=== PATIENT | male | born 1960 | race Caucasian/White ===

== ENCOUNTER 2018-12-26 21:42 | Inpatient (IN) | payer OTHER ==
[2018-12-26] MEDS: SOD CHLORIDE 0.9% 1,000 ML IV (22:45)
[2018-12-26] MEDS: ONDANSETRON 4 MG INJ IV (22:46)
[2018-12-26] MEDS: morphine 4 MG/ML VIAL IV (22:46)
[2018-12-26 22:47] LABS: ADD MAN DIFF? NO
[2018-12-26 22:53] LABS: BASOPHIL # 0.1 10^3/ul (0.0-0.1); BASOPHILS % 0.2 % (0.0-2.0); EOSINOPHILS % 0.2 % (0.0-7.0); HEMATOCRIT 45.2 % (42.0-52.0); HEMOGLOBIN 15.6 g/dl (14.0-18.0); LYMPHOCYTES # 1.6 10^3/ul (0.8-2.9); LYMPHOCYTES % 7.6 % (15.0-51.0); MEAN CORPUSCULAR HGB CONC 34.5 g/dl (32.0-37.0); MEAN CORPUSCULAR VOLUME 89.7 fl (82.0-101.0); MEAN PLATELET VOLUME 10.2 fl (7.4-10.4); MONOCYTE # 1.1 10^3/ul (0.3-0.9); MONOCYTES % 5.4 % (0.0-11.0); PLATELET COUNT 294 10^3/UL (140-415); RED BLOOD COUNT 5.04 10^6/ul (4.70-6.10); RED CELL DISTRIBUTION WIDTH 12.7 % (11.5-14.5)
[2018-12-26 22:53] LABS: WHITE BLOOD COUNT 20.9 10^3/ul (4.8-10.8)
[2018-12-26 23:09] LABS: ALANINE AMINOTRANSFERASE 24 IU/L (13-69); ALKALINE PHOSPHATASE 123 IU/L (42-121); AMYLASE 82 U/L (11-123); ANION GAP 11 (5-13); ASPARTATE AMINO TRANSFERASE 32 IU/L (15-46); BLOOD UREA NITROGEN 15 mg/dl (7-20); CALCIUM 10.2 mg/dl (8.4-10.2); CARBON DIOXIDE 28 mmol/L (21-31); CHLORIDE 102 mmol/L (97-110); CREATININE 0.76 mg/dl (0.61-1.24); Estimated GFR > 60 mL/min (>60); GLUCOSE 324 mg/dl (70-220); LIPASE 109 U/L (23-300); POTASSIUM 3.8 mmol/L (3.5-5.1); SODIUM 141 mmol/L (135-144)
[2018-12-26 23:10] LABS: ALBUMIN 4.4 g/dl (3.3-4.9); ALBUMIN/GLOBULIN RATIO 1.07; TOTAL PROTEIN 8.5 g/dl (6.1-8.1)
[2018-12-26 23:13] LABS: INR 0.97; PARTIAL THROMBOPLASTIN TIME 27.4 Sec (23.0-35.0)
[2018-12-26] MEDS: HYDROmorphONE 0.5 MG/0.5 ML SYG IV (23:55)
[2018-12-27] MEDS ORDERED: ONDANSETRON 4 MG INJ IV ×2 (02:30→04:30)
[2018-12-27] MEDS ORDERED: ACETAMINOPHEN 325 MG TAB PO ×2 (02:30→04:30)
[2018-12-27] MEDS ORDERED: BISACODYL (EC) 5 MG TAB PO (04:30)
[2018-12-27] MEDS ORDERED: morphine 2 MG INJ IV (04:30)
[2018-12-27] MEDS ORDERED: DOCUSATE SODIUM 100 MG CAP PO (04:30)
[2018-12-27] MEDS ORDERED: GLUCOSE GEL 15 GRAM TUBE BUCCAL (04:30)
[2018-12-27] MEDS ORDERED: GLUCOSE GEL 15 GRAM TUBE PO ×2 (04:30)
[2018-12-27] MEDS ORDERED: NACL 0.9% 3 ML SYG IV (04:30)
[2018-12-27] MEDS ORDERED: GLUCAGON 1 MG INJ IM (04:30)
[2018-12-27] MEDS ORDERED: DEXTROSE 50% 50 ML SYRINGE IV ×2 (04:30)
[2018-12-27] MEDS: SOD CHLORIDE 0.9% 1,000 ML IV ×2 (05:51→21:42)
[2018-12-27] MEDS: INSULIN ASPART [NOVOLOG] 3 ML PEN SC ×4 (05:52→20:46)
[2018-12-27 13:45] LABS: ADD MAN DIFF? NO
[2018-12-27 13:47] LABS: BASOPHILS % 0.3 % (0.0-2.0); EOSINOPHILS # 0.1 10^3/ul (0.0-0.5); EOSINOPHILS % 1.3 % (0.0-7.0); HEMATOCRIT 38.5 % (42.0-52.0); HEMOGLOBIN 13.5 g/dl (14.0-18.0); LYMPHOCYTES # 1.6 10^3/ul (0.8-2.9); LYMPHOCYTES % 17.5 % (15.0-51.0); MEAN CORPUSCULAR HEMOGLOBIN 31.4 pg (29.0-33.0); MEAN CORPUSCULAR HGB CONC 35.1 g/dl (32.0-37.0); MEAN CORPUSCULAR VOLUME 89.5 fl (82.0-101.0); MEAN PLATELET VOLUME 10.2 fl (7.4-10.4); MONOCYTE # 0.9 10^3/ul (0.3-0.9); MONOCYTES % 9.5 % (0.0-11.0); NEUTROPHIL # 6.6 10^3/ul (1.6-7.5); PLATELET COUNT 262 10^3/UL (140-415); RED CELL DISTRIBUTION WIDTH 12.8 % (11.5-14.5)
[2018-12-27 13:47] LABS: WHITE BLOOD COUNT 9.3 10^3/ul (4.8-10.8)
[2018-12-27] MEDS ORDERED: IOHEXOL 300MG/ML 150 ML BTL (15:13)
[2018-12-27] MEDS ORDERED: INSULIN ASPART [NOVOLOG] 3 ML PEN SC (17:35)
[2018-12-27] MEDS: INSULIN GLARGINE [LANTus] (100 UNITS/ML) SYG SC (20:46)
[2018-12-28] MEDS: INSULIN ASPART [NOVOLOG] 3 ML PEN SC ×6 (01:00→20:18)
[2018-12-28] MEDS ORDERED: ACCU-CHEK XX (02:00)
[2018-12-28 06:51] LABS: HEMOGLOBIN A1C 10.3 % (0-5.9)
[2018-12-28] MEDS: SOD CHLORIDE 0.9% 1,000 ML IV ×2 (06:58→17:24)
[2018-12-28 07:13] LABS: ANION GAP 5 (5-13); BLOOD UREA NITROGEN 13 mg/dl (7-20); CALCIUM 8.6 mg/dl (8.4-10.2); CARBON DIOXIDE 28 mmol/L (21-31); CHLORIDE 111 mmol/L (97-110); CHOL/HDL RATIO 4.5 RATIO; CHOLESTEROL 142 mg/dl (100-200); CREATININE 0.76 mg/dl (0.61-1.24); Estimated GFR > 60 mL/min (>60); GLUCOSE 131 mg/dl (70-220); HDL CHOLESTEROL 31 mg/dl (28-71); LDL CHOLESTEROL,CALCULATED 89 mg/dl; POTASSIUM 3.9 mmol/L (3.5-5.1); SODIUM 144 mmol/L (135-144); TRIGLYCERIDES 109 mg/dl (0-149)
[2018-12-28] MEDS: INSULIN GLARGINE [LANTus] (100 UNITS/ML) SYG SC (20:00)
[2018-12-29] MEDS: INSULIN ASPART [NOVOLOG] 3 ML PEN SC ×6 (01:00→20:20)
[2018-12-29] MEDS: DEXTROSE 5%-0.45% NACL 1,000 ML IV ×2 (01:32→16:45)
[2018-12-29 07:57] LABS: ADD MAN DIFF? NO
[2018-12-29 08:06] LABS: WHITE BLOOD COUNT 5.8 10^3/ul (4.8-10.8)
[2018-12-29 08:06] LABS: BASOPHILS % 0.5 % (0.0-2.0); EOSINOPHILS # 0.1 10^3/ul (0.0-0.5); EOSINOPHILS % 2.1 % (0.0-7.0); HEMATOCRIT 39.8 % (42.0-52.0); HEMOGLOBIN 13.6 g/dl (14.0-18.0); LYMPHOCYTES # 1.4 10^3/ul (0.8-2.9); LYMPHOCYTES % 24.7 % (15.0-51.0); MEAN CORPUSCULAR HEMOGLOBIN 31.1 pg (29.0-33.0); MEAN CORPUSCULAR HGB CONC 34.2 g/dl (32.0-37.0); MEAN CORPUSCULAR VOLUME 90.9 fl (82.0-101.0); MEAN PLATELET VOLUME 10.1 fl (7.4-10.4); MONOCYTE # 0.4 10^3/ul (0.3-0.9); MONOCYTES % 7.4 % (0.0-11.0); NEUTROPHIL # 3.8 10^3/ul (1.6-7.5); PLATELET COUNT 255 10^3/UL (140-415); RED BLOOD COUNT 4.38 10^6/ul (4.70-6.10); RED CELL DISTRIBUTION WIDTH 12.7 % (11.5-14.5)
[2018-12-29 08:25] LABS: PHOSPHORUS 2.9 mg/dl (2.5-4.9)
[2018-12-29 08:25] LABS: LIPASE 94 U/L (23-300); MAGNESIUM 1.7 mg/dl (1.7-2.5)
[2018-12-29 08:26] LABS: ALANINE AMINOTRANSFERASE 22 IU/L (13-69); ALBUMIN 3.4 g/dl (3.3-4.9); ALKALINE PHOSPHATASE 58 IU/L (42-121); ANION GAP 8 (5-13); ASPARTATE AMINO TRANSFERASE 24 IU/L (15-46); BILIRUBIN,INDIRECT 1.6 mg/dl (0-1.1); BILIRUBIN,TOTAL 1.6 mg/dl (0.2-1.3); BLOOD UREA NITROGEN 10 mg/dl (7-20); CALCIUM 8.6 mg/dl (8.4-10.2); CARBON DIOXIDE 24 mmol/L (21-31); CHLORIDE 110 mmol/L (97-110); CREATININE 0.64 mg/dl (0.61-1.24); Estimated GFR > 60 mL/min (>60); GLUCOSE 118 mg/dl (70-220); POTASSIUM 3.6 mmol/L (3.5-5.1); SODIUM 142 mmol/L (135-144); TOTAL PROTEIN 6.8 g/dl (6.1-8.1)
[2018-12-29] MEDS: FAMOTIDINE 20 MG INJ IV (08:45)
[2018-12-29 08:57] LABS: THYROID STIMULATING HORMONE 0.574 MIU/L (0.465-4.680)
[2018-12-29] MEDS: INSULIN GLARGINE [LANTus] (100 UNITS/ML) SYG SC ×2 (20:00→21:13)
[2018-12-30] MEDS: INSULIN ASPART [NOVOLOG] 3 ML PEN SC ×3 (00:49→11:30)
[2018-12-30] MEDS: DEXTROSE 5%-0.45% NACL 1,000 ML IV (05:59)
[2018-12-30] MEDS: FAMOTIDINE 20 MG INJ IV (09:21)
[2018-12-30] MEDS ORDERED: metFORMIN 850 MG TAB PO (18:05)
== END 2018-12-30 16:40 | disposition home or self-care (01) | DRG 390 ==
LOC: E/R 21:42 → PP2 12-27 02:13
DX: K56.609 Unspecified intestinal obstruction, unspecified as to partial versus complete obstruction (principal); D35.02 Benign neoplasm of left adrenal gland; E11.9 Type 2 diabetes mellitus without complications; E66.9 Obesity, unspecified; I10 Essential (primary) hypertension; Z68.31 Body mass index [BMI] 31.0-31.9, adult
CPT/HCPCS: 71045; 74176; 74250; 80048; 80053; 80061; 82150; 82962; 83036; 83605; 83690; 83735; 84100; 84443; 85025; 85610; 85730